=== PATIENT | male | born 1990 | race Caucasian/White ===

== ENCOUNTER 2021-11-17 12:24 | Inpatient (IN) | payer MEDICARE ==
[~2021-11-17] VITALS: Ht 165.1 cm; Wt 51.3 kg
[2021-11-17] MEDS ORDERED: MORPHINE SULFATE 4 MG/ML CPJ (NOT FOR IM USE) IV STA (12:33)
[2021-11-17] MEDS ORDERED: ONDANSETRON HCL 4MG/2ML INJ IV STA (12:33)
[2021-11-17] MEDS ORDERED: SODIUM CHLORIDE 0.9% 1,000 ML IV ONE (12:45)
[2021-11-17 13:14] LABS: CHLORIDE 101 mEq/L (98-107)
[2021-11-17] MEDS ORDERED: ASPIRIN 81MG TABLET PO ONE (13:15)
[2021-11-17 13:24] LABS: BG BASE EXCESS 0.8 mmol/L (-2.0-2.0); BG CARBOXYHEMOGLOBIN 0.6 % (0.5-1.5); BG DEOXYHEMOGLOBIN 9.5 % (0.0-5.0); BG FRACTION INSPIRED OXYGEN 21; BG HCO3 ACT 25.4 mmol/L (22.0-26.0); BG METHEMOGLOBIN 0.1 % (0.0-1.5); BG OXYGEN SATURATION 90.4 % (92.0-98.5); BG OXYHEMOGLOBIN 89.8 % (94.0-97.0); BG PCO2 40.3 mmHg (35.0-45.0); BG PH 7.417 (7.350-7.450); BG TOTAL HEMOGLOBIN 14.2 g/dL (12.0-18.0); BG VENT MODE ROOM AIR
[2021-11-17 13:24] LABS: ETHANOL BLOOD < 10 mg/dL
[2021-11-17 13:25] LABS: HEMATOCRIT. 39.1 % (42.0-52.0); HEMOGLOBIN. 13.2 g/dL (14.0-18.0); MEAN CORPUSCULAR HEMOGLOBIN 31.7 pg (28.0-32.0); MEAN CORPUSCULAR VOLUME 93.8 fL (80.0-94.0); MEAN PLATELET VOLUME 8.7 fl (7.4-10.4); PLATELET 392 x1000/uL (130-400); RED BLOOD CELL COUNT 4.16 mill/uL (4.7-6.1)
[2021-11-17] MEDS ORDERED: AZITHROMYCIN 500MG/250ML 250 ML IV ONE (13:45)
[2021-11-17] MEDS ORDERED: SODIUM CHLORIDE 0.9% 1000ML BAG (SEPSIS BOLUS) IV ONE (13:45)
[2021-11-17] MEDS ORDERED: CEFTRIAXONE 1 G PREMIX 50 ML IV ONE (13:45)
[2021-11-17 13:57] LABS: CLARITY URINE CLEAR (CLEAR); COLOR URINE DARK YELLOW (YELLOW); KETONES URINE TRACE (NEGATIVE); LEUKOCYTE ESTERASE URINE NEGATIVE (NEGATIVE); NITRITE URINE NEGATIVE (NEGATIVE); OCCULT BLOOD URINE NEGATIVE (NEGATIVE); PH URINE 8.5 (4.5-8.0); PROTEIN URINE 2+ (NEGATIVE); SPECIFIC GRAVITY URINE 1.022 (1.005-1.030)
[2021-11-17 14:18] LABS: *AMPHETAMINES SCREEN URINE NEGATIVE (NEGATIVE); *BARBITURATES SCREEN URINE NEGATIVE (NEGATIVE); *BENZODIAZEPINES SCREEN URINE NEGATIVE (NEGATIVE); *COCAINE SCREEN URINE PRESUMTIVE POSITIVE (NEGATIVE); CANNABINOID URINE SCREEN NEGATIVE (NEGATIVE); METHADONE URINE SCREEN NEGATIVE (NEGATIVE); OPIATES URINE SCREEN PRESUMTIVE POSITIVE (NEGATIVE); PHENCYCLIDINE URINE SCREEN NEGATIVE (NEGATIVE)
[2021-11-17] MEDS ORDERED: CEFTRIAXONE 1 G PREMIX 50 ML IV SCH (14:30)
[2021-11-17] MEDS ORDERED: IOHEXOL-350 100 ML BOTTLE ONE (15:24)
[2021-11-17 15:31] LABS: PLATELET ESTIMATE NORMAL
[2021-11-17] MEDS ORDERED: MIDAZOLAM HCL 2 MG/2 ML VIAL IV ONE (15:45)
[2021-11-17] MEDS ORDERED: CEFTRIAXONE 1,000 MG in DEXTROSE 5% WATER 50 ML IV SCH (17:00)
[2021-11-17 17:40] LABS: D-DIMER 3.8 mg/L FEU (<0.50); PARTIAL THROMBOPLASTIN TIME 28.7 sec (23.4-31.0); PROTHROMBIN TIME 11.2 sec (9.6-11.0)
[2021-11-17] MEDS ORDERED: AZITHROMYCIN 500MG in DEXTROSE 5% WATER 250ML IV SCH (18:00)
[2021-11-17] MEDS ORDERED: VANCOMYCIN 1GM PMX (XELLIA) 200 ML IV NR (18:00)
[2021-11-17] MEDS: KETOROLAC 30MG/ML VIAL IV PRN (20:36)
[2021-11-17] MEDS ORDERED: GUAIFENESIN 600MG ER TABLET PO SCH (21:00)
[2021-11-17] MEDS ORDERED: PIPERACILLIN/TAZOBACTAM 3.375 G in DEXTROSE 5% WATER 50 ML IV SCH (22:00)
[2021-11-17] MEDS: PIPERACILLIN/TAZOBACTAM 3.375 G in DEXTROSE 5% WATER 50 ML IV SCH (22:00)
[2021-11-17] MEDS: GUAIFENESIN 600MG ER TABLET PO SCH (23:52)
[2021-11-18] MEDS ORDERED: VANCOMYCIN 750MG PREMIX 150 ML IV SCH ×2 (06:00→12:00)
[2021-11-18] MEDS ORDERED: AZITHROMYCIN 500MG/250ML 250 ML IV SCH (09:00)
[2021-11-18] MEDS: GUAIFENESIN 600MG ER TABLET PO SCH (09:00)
[2021-11-18] MEDS ORDERED: HYDROCODONE/ACETAMINOPHEN 5/325MG TABLET ONE (11:11)
[2021-11-18] MEDS ORDERED: NALOXONE HCL 0.4MG/ML VIAL IV PRN (11:30)
[2021-11-18] MEDS: HYDROCODONE/ACETAMINOPHEN 5/325MG TABLET PO PRN ×2 (11:31→17:55)
[2021-11-18] MEDS: VANCOMYCIN 1GM PMX (XELLIA) 200 ML IV SCH (12:00)
[2021-11-18] MEDS: PIPERACILLIN/TAZOBACTAM 3.375 G in DEXTROSE 5% WATER 50 ML IV SCH ×3 (12:02→23:04)
[2021-11-18] MEDS ORDERED: MAGNESIUM 2 G PREMIX 50 ML IV SCH (13:00)
[2021-11-18] MEDS: KETOROLAC 30MG/ML VIAL IV PRN (13:12)
[2021-11-18] MEDS: MORPHINE SULFATE 2 MG/ML CPJ (NOT FOR IM USE) IV PRN ×2 (15:10→22:15)
[2021-11-18] MEDS: DEXT 5%/0.45% NACL 500ML 500 ML IV PRN (15:21)
[2021-11-18 18:58] LABS: HEMOGLOBIN. 13.1 g/dL (14.0-18.0); MEAN CORPUSCULAR VOLUME 94.8 fL (80.0-94.0); MEAN PLATELET VOLUME 7.6 fl (7.4-10.4); PLATELET 456 x1000/uL (130-400); RED BLOOD CELL COUNT 4.22 mill/uL (4.7-6.1); RED CELL DISTRIBUTION WIDTH 14.3 % (11.6-14.6)
[2021-11-18 19:27] LABS: PLATELET ESTIMATE INCREASED
[2021-11-19] VITALS (14 sets, daily range): BP systolic 92–136; BP diastolic 51–73
[2021-11-19] MEDS: GUAIFENESIN 600MG ER TABLET PO SCH ×3 (00:49→20:27)
[2021-11-19] MEDS: VANCOMYCIN 1GM PMX (XELLIA) 200 ML IV SCH ×2 (00:50→05:25)
[2021-11-19] MEDS: KETOROLAC 30MG/ML VIAL IV PRN ×2 (00:50→11:35)
[2021-11-19] MEDS: ACETAMINOPHEN 325MG TABLET PO PRN ×3 (02:36→19:40)
[2021-11-19] MEDS: MORPHINE SULFATE 2 MG/ML CPJ (NOT FOR IM USE) IV PRN ×3 (02:37→17:06)
[2021-11-19 03:57] LABS: CHLORIDE 102 mEq/L (98-107)
[2021-11-19] MEDS: PIPERACILLIN/TAZOBACTAM 3.375 G in DEXTROSE 5% WATER 50 ML IV SCH ×3 (05:26→22:03)
[2021-11-19 06:28] LABS: HEMATOCRIT. 39.1 % (42.0-52.0); HEMOGLOBIN. 13.2 g/dL (14.0-18.0); MEAN CORPUSCULAR HEMOGLOBIN 31.9 pg (28.0-32.0); MEAN CORPUSCULAR VOLUME 94.7 fL (80.0-94.0); MEAN PLATELET VOLUME 7.9 fl (7.4-10.4); PLATELET 435 x1000/uL (130-400); RED BLOOD CELL COUNT 4.13 mill/uL (4.7-6.1); RED CELL DISTRIBUTION WIDTH 14.5 % (11.6-14.6)
[2021-11-19] MEDS ORDERED: POTASSIUM CHLORIDE INJ 40 MEQ in DEXT 5% WATER 500 ML IV ONE (10:00)
[2021-11-19] MEDS ORDERED: DILTIAZEM HCL 5MG/ML 5ML VIAL IV NR (12:15)
[2021-11-19] MEDS: VANCOMYCIN 750MG PREMIX 150 ML IV SCH ×2 (13:13→21:58)
[2021-11-19] MEDS ORDERED: DILTIAZEM HCL 5MG/ML 5ML VIAL IV PRN (14:15)
[2021-11-19] MEDS: IPRATROPIUM/ALBUTEROL 0.5-3(2.5)MG/3ML NEB HHN SCH ×2 (16:33→20:15)
[2021-11-19] MEDS: HYDROCODONE/ACETAMINOPHEN 5/325MG TABLET PO PRN (19:30)
[2021-11-19] MEDS: ZOLPIDEM TARTRATE 5MG TABLET PO PRN (21:18)
[2021-11-20] VITALS (10 sets, daily range): BP systolic 100–155; BP diastolic 50–78
[2021-11-20] MEDS: MORPHINE SULFATE 2 MG/ML CPJ (NOT FOR IM USE) IV PRN ×4 (00:28→20:43)
[2021-11-20] MEDS: ACETAMINOPHEN 325MG TABLET PO PRN ×3 (01:59→17:45)
[2021-11-20] MEDS: KETOROLAC 30MG/ML VIAL IV PRN (02:14)
[2021-11-20 03:12] LABS: HEMATOCRIT. 39.4 % (42.0-52.0); HEMOGLOBIN. 13.2 g/dL (14.0-18.0); MEAN CORPUSCULAR VOLUME 92.8 fL (80.0-94.0); MEAN PLATELET VOLUME 7.8 fl (7.4-10.4); PLATELET 569 x1000/uL (130-400); RED BLOOD CELL COUNT 4.25 mill/uL (4.7-6.1); RED CELL DISTRIBUTION WIDTH 14.2 % (11.6-14.6)
[2021-11-20 03:25] LABS: CHLORIDE 101 mEq/L (98-107)
[2021-11-20] MEDS: IPRATROPIUM/ALBUTEROL 0.5-3(2.5)MG/3ML NEB HHN SCH ×3 (04:45→16:07)
[2021-11-20 04:57] LABS: PLATELET ESTIMATE INCREASED
[2021-11-20] MEDS: PIPERACILLIN/TAZOBACTAM 3.375 G in DEXTROSE 5% WATER 50 ML IV SCH ×3 (05:15→20:44)
[2021-11-20] MEDS: VANCOMYCIN 750MG PREMIX 150 ML IV SCH (05:15)
[2021-11-20] MEDS: IPRATROPIUM/ALBUTEROL 0.5-3(2.5)MG/3ML NEB HHN PRN (08:25)
[2021-11-20] MEDS: GUAIFENESIN 600MG ER TABLET PO SCH ×2 (08:34→20:44)
[2021-11-20] MEDS: DILTIAZEM HCL 30MG TABLET PO SCH ×3 (12:20→23:38)
[2021-11-20] MEDS: HYDROCODONE/ACETAMINOPHEN 5/325MG TABLET PO PRN (13:35)
[2021-11-20 14:03] LABS: PLATELET ESTIMATE SLIGHTLY INCREASED
[2021-11-20] MEDS: VANCOMYCIN 1GM PMX (XELLIA) 200 ML IV SCH ×2 (14:14→20:44)
[2021-11-20] MEDS: LORAZEPAM 1MG TABLET PO PRN (15:41)
[2021-11-20] MEDS: IPRATROPIUM BROMIDE (0.02%) 0.5MG/2.5ML NEB HHN SCH (20:15)
[2021-11-20] MEDS: ONDANSETRON HCL 4MG/2ML INJ IV PRN (20:44)
[2021-11-20] MEDS: ZOLPIDEM TARTRATE 5MG TABLET PO PRN (21:34)
[2021-11-21] VITALS (13 sets, daily range): BP systolic 109–136; BP diastolic 60–76
[2021-11-21] MEDS: HYDROCODONE/ACETAMINOPHEN 5/325MG TABLET PO PRN (01:18)
[2021-11-21] MEDS: LORAZEPAM 1MG TABLET PO PRN ×2 (01:18→16:55)
[2021-11-21] MEDS: IPRATROPIUM BROMIDE (0.02%) 0.5MG/2.5ML NEB HHN SCH ×4 (02:18→19:59)
[2021-11-21] MEDS: PIPERACILLIN/TAZOBACTAM 3.375 G in DEXTROSE 5% WATER 50 ML IV SCH ×3 (04:57→20:54)
[2021-11-21] MEDS: VANCOMYCIN 1GM PMX (XELLIA) 200 ML IV SCH ×3 (04:58→20:55)
[2021-11-21] MEDS: DILTIAZEM HCL 30MG TABLET PO SCH ×4 (05:03→23:46)
[2021-11-21] MEDS: MORPHINE SULFATE 2 MG/ML CPJ (NOT FOR IM USE) IV PRN (06:25)
[2021-11-21 06:39] LABS: CHLORIDE 100 mEq/L (98-107)
[2021-11-21 06:45] LABS: HEMATOCRIT. 39.5 % (42.0-52.0); HEMOGLOBIN. 13.2 g/dL (14.0-18.0); MEAN CORPUSCULAR HEMOGLOBIN 31.1 pg (28.0-32.0); MEAN CORPUSCULAR VOLUME 93.4 fL (80.0-94.0); MEAN PLATELET VOLUME 8.3 fl (7.4-10.4); PLATELET 638 x1000/uL (130-400); RED BLOOD CELL COUNT 4.22 mill/uL (4.7-6.1); RED CELL DISTRIBUTION WIDTH 14.4 % (11.6-14.6)
[2021-11-21] MEDS ORDERED: ACETAMINOPHEN 325MG TABLET PO PRN (08:45)
[2021-11-21] MEDS: ACETAMINOPHEN 325MG TABLET PO PRN ×3 (08:49→22:11)
[2021-11-21] MEDS: GUAIFENESIN 600MG ER TABLET PO SCH ×2 (08:49→20:55)
[2021-11-21 15:08] LABS: PLATELET ESTIMATE INCREASED
[2021-11-21] MEDS ORDERED: DIGOXIN 500MCG/2ML AMP IV NR (18:15)
[2021-11-21] MEDS: ZOLPIDEM TARTRATE 5MG TABLET PO PRN (22:11)
[2021-11-22] VITALS (22 sets, daily range): BP systolic 90–147; BP diastolic 52–93
[2021-11-22] MEDS: DEXT 5%/0.45% NACL 500ML 500 ML IV PRN (00:59)
[2021-11-22] MEDS: IPRATROPIUM BROMIDE (0.02%) 0.5MG/2.5ML NEB HHN SCH ×4 (01:12→18:00)
[2021-11-22] MEDS: LORAZEPAM 1MG TABLET PO PRN (03:18)
[2021-11-22] MEDS: ONDANSETRON HCL 4MG/2ML INJ IV PRN (03:18)
[2021-11-22] MEDS: PIPERACILLIN/TAZOBACTAM 3.375 G in DEXTROSE 5% WATER 50 ML IV SCH ×3 (05:42→23:58)
[2021-11-22] MEDS: VANCOMYCIN 1GM PMX (XELLIA) 200 ML IV SCH ×3 (05:42→22:54)
[2021-11-22] MEDS: DILTIAZEM HCL 30MG TABLET PO SCH ×3 (05:43→17:36)
[2021-11-22] MEDS: HYDROCODONE/ACETAMINOPHEN 5/325MG TABLET PO PRN (09:41)
[2021-11-22] MEDS: GUAIFENESIN 600MG ER TABLET PO SCH ×2 (09:42→21:00)
[2021-11-22 12:34] LABS: INR 1.1; PROTHROMBIN TIME 11.5 sec (9.6-11.0)
[2021-11-22 12:35] LABS: CHLORIDE 100 mEq/L (98-107)
[2021-11-22 12:45] LABS: HEMOGLOBIN. 12.4 g/dL (14.0-18.0); MEAN CORPUSCULAR HEMOGLOBIN 31.4 pg (28.0-32.0); MEAN CORPUSCULAR VOLUME 94.1 fL (80.0-94.0); MEAN PLATELET VOLUME 8.2 fl (7.4-10.4); PLATELET 639 x1000/uL (130-400); RED BLOOD CELL COUNT 3.93 mill/uL (4.7-6.1); RED CELL DISTRIBUTION WIDTH 14.4 % (11.6-14.6)
[2021-11-22 13:51] LABS: PLATELET ESTIMATE MARKEDLY INCREASED
[2021-11-22] MEDS: ACETAMINOPHEN 325MG TABLET PO PRN (15:37)
[2021-11-22] MEDS ORDERED: BUPIVACAINE HCL/PF 0.5% (5MG/ML) 10ML ONE (16:18)
[2021-11-22] MEDS ORDERED: SKIN ADHESIVE 0.7 GM EA TOP ONE (16:18)
[2021-11-22] MEDS ORDERED: POLYMYXIN B SULFATE 500000 UNITS/VIAL ONE (16:18)
[2021-11-22] MEDS ORDERED: POTASSIUM CHLORIDE INJ 40 MEQ in DEXT 5% WATER 500 ML IV NR (16:30)
[2021-11-22] MEDS ORDERED: FENTANYL CITRATE/PF 50MCG/ML 2ML VIAL ONE (19:19)
[2021-11-22] MEDS ORDERED: PROPOFOL 200MG/20ML VIAL IV ONE (19:19)
[2021-11-22] MEDS ORDERED: MIDAZOLAM HCL 2 MG/2 ML VIAL ONE (19:20)
[2021-11-22] MEDS ORDERED: ROCURONIUM BROMIDE 10MG/ML VIAL 5ML IV ONE (19:24)
[2021-11-22] MEDS ORDERED: NEOSTIGMINE METHYLSULFATE 1MG/ML 10 ML VIAL ONE (20:35)
[2021-11-22] MEDS ORDERED: ONDANSETRON HCL 4MG/2ML INJ ONE (20:35)
[2021-11-22] MEDS ORDERED: DEXAMETHASONE 4MG/ML 1ML VIAL ONE (20:35)
[2021-11-22] MEDS ORDERED: GLYCOPYRROLATE 0.2 MG/ML 2ML VIAL ONE (20:35)
[2021-11-22] MEDS ORDERED: METOCLOPRAMIDE HCL 10MG/2ML VIAL ONE (20:35)
[2021-11-22] MEDS ORDERED: HYDROMORPHONE HCL/PF 2MG/ML CPJ ONE (20:38)
[2021-11-22] MEDS ORDERED: ONDANSETRON HCL 4MG/2ML INJ IV PRN (21:30)
[2021-11-22] MEDS ORDERED: HYDROMORPHONE HCL/PF 2MG/ML CPJ IV PRN (21:30)
[2021-11-22] MEDS ORDERED: MEPERIDINE HCL/PF 25MG/ML CPJ IV PRN (21:30)
[2021-11-22] MEDS ORDERED: SODIUM CHLORIDE 0.9% 1,000 ML IV ONE (22:00)
[2021-11-22] MEDS: HYDROMORPHONE HCL/PF 2MG/ML CPJ IV PRN (22:39)
[2021-11-22] MEDS: LACTATED RINGERS 1,000 ML IV SCH (23:38)
[2021-11-23] VITALS (69 sets, daily range): BP systolic 90–134; BP diastolic 54–92
[2021-11-23] MEDS: HYDROMORPHONE HCL/PF 2MG/ML CPJ IV PRN (02:16)
[2021-11-23 05:57] LABS: CHLORIDE 102 mEq/L (98-107)
[2021-11-23] MEDS: DILTIAZEM HCL 30MG TABLET PO SCH ×4 (06:00→16:51)
[2021-11-23 06:03] LABS: HEMATOCRIT. 36.1 % (42.0-52.0); HEMOGLOBIN. 12.1 g/dL (14.0-18.0); MEAN CORPUSCULAR HEMOGLOBIN 31.3 pg (28.0-32.0); MEAN CORPUSCULAR VOLUME 93.3 fL (80.0-94.0); MEAN PLATELET VOLUME 8.3 fl (7.4-10.4); PLATELET 683 x1000/uL (130-400); RED BLOOD CELL COUNT 3.87 mill/uL (4.7-6.1); RED CELL DISTRIBUTION WIDTH 14.6 % (11.6-14.6)
[2021-11-23] MEDS: PIPERACILLIN/TAZOBACTAM 3.375 G in DEXTROSE 5% WATER 50 ML IV SCH ×3 (06:27→21:47)
[2021-11-23] MEDS: HYDROCODONE/ACETAMINOPHEN 5/325MG TABLET PO PRN (06:28)
[2021-11-23 08:41] LABS: BG BASE EXCESS -0.1 mmol/L (-2.0-2.0); BG CARBOXYHEMOGLOBIN 0.3 % (0.5-1.5); BG HCO3 ACT 23.6 mmol/L (22.0-26.0); BG METHEMOGLOBIN 0.2 % (0.0-1.5); BG OXYHEMOGLOBIN 98.5 % (94.0-97.0); BG PCO2 35.1 mmHg (35.0-45.0); BG PH 7.445 (7.350-7.450); BG PO2 152.9 mmHg (75.0-100.0); BG SAMPLE SITE RIGHT BRACHIAL; BG TOTAL HEMOGLOBIN 12.7 g/dL (12.0-18.0); BG VENT MODE MASK - NRB
[2021-11-23] MEDS: MORPHINE SULFATE 2 MG/ML CPJ (NOT FOR IM USE) IV PRN ×2 (08:57→14:05)
[2021-11-23] MEDS: GUAIFENESIN 600MG ER TABLET PO SCH ×2 (08:57→21:47)
[2021-11-23] MEDS: IPRATROPIUM BROMIDE (0.02%) 0.5MG/2.5ML NEB HHN SCH ×2 (08:58→14:55)
[2021-11-23] MEDS: LACTATED RINGERS 1,000 ML IV SCH (11:20)
[2021-11-23] MEDS: HYDROCODONE/ACETAMINOPHEN 10/325MG TABLET PO PRN ×3 (11:55→21:56)
[2021-11-23] MEDS: VANCOMYCIN 1GM PMX (XELLIA) 200 ML IV SCH ×2 (11:55→20:06)
[2021-11-23] MEDS ORDERED: NALOXONE HCL 0.4MG/ML VIAL IV PRN (12:00)
[2021-11-23] MEDS ORDERED: MORPHINE SULFATE 2 MG/ML CPJ (NOT FOR IM USE) IV NR (16:45)
[2021-11-23] MEDS: ZOLPIDEM TARTRATE 5MG TABLET PO PRN (22:51)
[2021-11-23 22:54] LABS: PLATELET ESTIMATE INCREASED
[2021-11-24] VITALS (68 sets, daily range): BP systolic 101–155; BP diastolic 53–78
[2021-11-24] MEDS: DILTIAZEM HCL 30MG TABLET PO SCH ×4 (00:02→17:25)
[2021-11-24] MEDS: IPRATROPIUM BROMIDE (0.02%) 0.5MG/2.5ML NEB HHN SCH ×3 (00:50→20:02)
[2021-11-24] MEDS: HYDROCODONE/ACETAMINOPHEN 10/325MG TABLET PO PRN ×4 (01:42→19:53)
[2021-11-24] MEDS ORDERED: MORPHINE SULFATE 2 MG/ML CPJ (NOT FOR IM USE) IV NR (03:30)
[2021-11-24] MEDS: VANCOMYCIN 1GM PMX (XELLIA) 200 ML IV SCH ×3 (03:46→20:02)
[2021-11-24] MEDS: PIPERACILLIN/TAZOBACTAM 3.375 G in DEXTROSE 5% WATER 50 ML IV SCH ×3 (05:57→21:43)
[2021-11-24 06:50] LABS: HEMATOCRIT. 32.1 % (42.0-52.0); HEMOGLOBIN. 10.8 g/dL (14.0-18.0); MEAN CORPUSCULAR HEMOGLOBIN 31.4 pg (28.0-32.0); MEAN CORPUSCULAR VOLUME 93.2 fL (80.0-94.0); MEAN PLATELET VOLUME 8.5 fl (7.4-10.4); PLATELET 746 x1000/uL (130-400); RED BLOOD CELL COUNT 3.44 mill/uL (4.7-6.1); RED CELL DISTRIBUTION WIDTH 14.5 % (11.6-14.6)
[2021-11-24 06:58] LABS: CHLORIDE 100 mEq/L (98-107)
[2021-11-24 07:31] LABS: PLATELET ESTIMATE INCREASED
[2021-11-24] MEDS: GUAIFENESIN 600MG ER TABLET PO SCH ×2 (10:53→20:02)
[2021-11-24] MEDS: DOCUSATE SODIUM 250MG CAPSULE PO SCH (11:55)
[2021-11-24] MEDS: MORPHINE SULFATE 2 MG/ML CPJ (NOT FOR IM USE) IV PRN ×4 (11:57→21:45)
[2021-11-24] MEDS: ACETAMINOPHEN 325MG TABLET PO PRN (16:34)
[2021-11-24 16:44] LABS: BG BASE EXCESS 0.1 mmol/L (-2.0-2.0); BG CARBOXYHEMOGLOBIN 0.9 % (0.5-1.5); BG DEOXYHEMOGLOBIN 3.5 % (0.0-5.0); BG FRACTION INSPIRED OXYGEN 38; BG HCO3 ACT 23.1 mmol/L (22.0-26.0); BG METHEMOGLOBIN 0.3 % (0.0-1.5); BG OXYGEN SATURATION 96.5 % (92.0-98.5); BG OXYHEMOGLOBIN 95.3 % (94.0-97.0); BG PCO2 32.5 mmHg (35.0-45.0); BG SAMPLE SITE RIGHT BRACHIAL; BG TOTAL HEMOGLOBIN 12.5 g/dL (12.0-18.0); BG VENT MODE NASAL CANNULA
[2021-11-24] MEDS ORDERED: LACTULOSE 20G/30ML UDC PO PRN (17:06)
[2021-11-24] MEDS: LORAZEPAM 1MG TABLET PO PRN (20:02)
[2021-11-24] MEDS: ZOLPIDEM TARTRATE 5MG TABLET PO PRN (22:43)
[2021-11-25] VITALS (20 sets, daily range): BP systolic 95–148; BP diastolic 47–82
[2021-11-25] MEDS: DILTIAZEM HCL 30MG TABLET PO SCH ×5 (00:01→23:43)
[2021-11-25] MEDS: HYDROCODONE/ACETAMINOPHEN 10/325MG TABLET PO PRN ×3 (00:02→15:49)
[2021-11-25] MEDS: VANCOMYCIN 1GM PMX (XELLIA) 200 ML IV SCH ×3 (03:04→20:45)
[2021-11-25] MEDS: PIPERACILLIN/TAZOBACTAM 3.375 G in DEXTROSE 5% WATER 50 ML IV SCH ×3 (05:09→20:48)
[2021-11-25] MEDS: MORPHINE SULFATE 2 MG/ML CPJ (NOT FOR IM USE) IV PRN ×4 (05:26→23:42)
[2021-11-25] MEDS: LORAZEPAM 1MG TABLET PO PRN (05:56)
[2021-11-25] MEDS: IPRATROPIUM BROMIDE (0.02%) 0.5MG/2.5ML NEB HHN SCH ×3 (07:57→20:34)
[2021-11-25 08:16] LABS: BG BASE EXCESS 2.9 mmol/L (-2.0-2.0); BG CARBOXYHEMOGLOBIN 0.5 % (0.5-1.5); BG DEOXYHEMOGLOBIN 6.4 % (0.0-5.0); BG FRACTION INSPIRED OXYGEN 21; BG HCO3 ACT 25.2 mmol/L (22.0-26.0); BG METHEMOGLOBIN 0.3 % (0.0-1.5); BG OXYGEN SATURATION 93.5 % (92.0-98.5); BG OXYHEMOGLOBIN 92.8 % (94.0-97.0); BG PCO2 31.6 mmHg (35.0-45.0); BG PO2 62.9 mmHg (75.0-100.0); BG SAMPLE SITE LEFT BRACHIAL; BG TOTAL HEMOGLOBIN 12.2 g/dL (12.0-18.0); BG VENT MODE ROOM AIR
[2021-11-25] MEDS: GUAIFENESIN 600MG ER TABLET PO SCH ×2 (08:23→20:48)
[2021-11-25] MEDS: DOCUSATE SODIUM 250MG CAPSULE PO SCH (08:25)
[2021-11-25 10:38] LABS: HEMATOCRIT. 33.4 % (42.0-52.0); HEMOGLOBIN. 11.2 g/dL (14.0-18.0); MEAN CORPUSCULAR VOLUME 92.6 fL (80.0-94.0); MEAN PLATELET VOLUME 7.9 fl (7.4-10.4); PLATELET 867 x1000/uL (130-400); RED BLOOD CELL COUNT 3.61 mill/uL (4.7-6.1); RED CELL DISTRIBUTION WIDTH 14.2 % (11.6-14.6)
[2021-11-25 10:44] LABS: CHLORIDE 96 mEq/L (98-107)
[2021-11-25] MEDS ORDERED: POTASSIUM CHLORIDE 20MEQ TABLET SR PO NR ×2 (12:15→13:30)
[2021-11-25 13:08] LABS: PLATELET ESTIMATE MARKEDLY INCREASED
[2021-11-25] MEDS: ACETAMINOPHEN 325MG TABLET PO PRN ×2 (17:33→23:43)
[2021-11-25] MEDS: ZOLPIDEM TARTRATE 5MG TABLET PO PRN (23:42)
[2021-11-26] VITALS (11 sets, daily range): BP systolic 107–127; BP diastolic 38–75
[2021-11-26] MEDS: VANCOMYCIN 1GM PMX (XELLIA) 200 ML IV SCH ×3 (03:00→21:12)
[2021-11-26] MEDS: HYDROCODONE/ACETAMINOPHEN 10/325MG TABLET PO PRN ×3 (03:26→21:11)
[2021-11-26] MEDS: DILTIAZEM HCL 30MG TABLET PO SCH ×3 (05:12→18:05)
[2021-11-26] MEDS: PIPERACILLIN/TAZOBACTAM 3.375 G in DEXTROSE 5% WATER 50 ML IV SCH ×3 (05:13→22:52)
[2021-11-26] MEDS: MORPHINE SULFATE 2 MG/ML CPJ (NOT FOR IM USE) IV PRN ×3 (06:07→14:31)
[2021-11-26 07:38] LABS: HEMATOCRIT 33.1 % (42.0-52.0); HEMOGLOBIN 10.9 g/dL (14.0-18.0); MEAN CORPUSCULAR HEMOGLOBIN 31.2 pg (28.0-32.0); PLATELET 884 x1000/uL (130-400); RED BLOOD CELL COUNT 3.49 mill/uL (4.7-6.1); RED CELL DISTRIBUTION WIDTH 14.2 % (11.6-14.6)
[2021-11-26 08:03] LABS: CHLORIDE 100 mEq/L (98-107)
[2021-11-26] MEDS: IPRATROPIUM BROMIDE (0.02%) 0.5MG/2.5ML NEB HHN SCH ×4 (08:19→18:00)
[2021-11-26] MEDS: GUAIFENESIN 600MG ER TABLET PO SCH ×2 (08:37→21:08)
[2021-11-26] MEDS: DOCUSATE SODIUM 250MG CAPSULE PO SCH (08:37)
[2021-11-26] MEDS: ZOLPIDEM TARTRATE 5MG TABLET PO PRN (23:01)
[2021-11-27] VITALS (12 sets, daily range): BP systolic 100–126; BP diastolic 40–77
[2021-11-27] MEDS: DILTIAZEM HCL 30MG TABLET PO SCH ×5 (00:26→23:02)
[2021-11-27] MEDS: HYDROCODONE/ACETAMINOPHEN 10/325MG TABLET PO PRN ×4 (04:22→20:50)
[2021-11-27] MEDS: PIPERACILLIN/TAZOBACTAM 3.375 G in DEXTROSE 5% WATER 50 ML IV SCH ×3 (05:24→21:00)
[2021-11-27 06:22] LABS: HEMATOCRIT. 31.7 % (42.0-52.0); HEMOGLOBIN. 10.4 g/dL (14.0-18.0); MEAN CORPUSCULAR HEMOGLOBIN 31.4 pg (28.0-32.0); MEAN CORPUSCULAR VOLUME 95.6 fL (80.0-94.0); MEAN PLATELET VOLUME 7.8 fl (7.4-10.4); PLATELET 969 x1000/uL (130-400); RED BLOOD CELL COUNT 3.32 mill/uL (4.7-6.1); RED CELL DISTRIBUTION WIDTH 14.4 % (11.6-14.6)
[2021-11-27 06:32] LABS: CHLORIDE 99 mEq/L (98-107)
[2021-11-27] MEDS: GUAIFENESIN 600MG ER TABLET PO SCH ×2 (08:27→20:50)
[2021-11-27] MEDS: DOCUSATE SODIUM 250MG CAPSULE PO SCH (08:27)
[2021-11-27] MEDS: IPRATROPIUM BROMIDE (0.02%) 0.5MG/2.5ML NEB HHN SCH ×4 (08:40→20:34)
[2021-11-27 09:48] LABS: PLATELET ESTIMATE MARKEDLY INCREASED
[2021-11-27] MEDS: VANCOMYCIN 1G PREMIX 200 ML IV SCH ×2 (10:34→18:01)
[2021-11-27] MEDS: MORPHINE SULFATE 2 MG/ML CPJ (NOT FOR IM USE) IV PRN ×3 (11:13→23:01)
[2021-11-28] VITALS (19 sets, daily range): BP systolic 87–126; BP diastolic 27–82
[2021-11-28] MEDS: VANCOMYCIN 1G PREMIX 200 ML IV SCH ×3 (01:22→17:43)
[2021-11-28] MEDS: IPRATROPIUM BROMIDE (0.02%) 0.5MG/2.5ML NEB HHN SCH ×4 (02:30→20:27)
[2021-11-28] MEDS: PIPERACILLIN/TAZOBACTAM 3.375 G in DEXTROSE 5% WATER 50 ML IV SCH ×3 (05:04→21:32)
[2021-11-28] MEDS: DILTIAZEM HCL 30MG TABLET PO SCH ×4 (05:54→23:31)
[2021-11-28] MEDS: HYDROCODONE/ACETAMINOPHEN 10/325MG TABLET PO PRN ×4 (06:07→21:33)
[2021-11-28 06:25] LABS: CHLORIDE 101 mEq/L (98-107)
[2021-11-28 06:58] LABS: HEMOGLOBIN. 10.7 g/dL (14.0-18.0); MEAN CORPUSCULAR HEMOGLOBIN 31.8 pg (28.0-32.0); MEAN PLATELET VOLUME 7.7 fl (7.4-10.4); RED BLOOD CELL COUNT 3.37 mill/uL (4.7-6.1); RED CELL DISTRIBUTION WIDTH 14.3 % (11.6-14.6)
[2021-11-28 08:03] LABS: PLATELET ESTIMATE MARKEDLY INCREASED
[2021-11-28 08:04] LABS: PLATELET 1028 x1000/uL (130-400)
[2021-11-28] MEDS: ENOXAPARIN 40MG/0.4ML SYR SUBCUT SCH (09:02)
[2021-11-28] MEDS: DOCUSATE SODIUM 250MG CAPSULE PO SCH (09:02)
[2021-11-28] MEDS: GUAIFENESIN 600MG ER TABLET PO SCH ×2 (09:02→21:32)
[2021-11-28] MEDS: ACETAMINOPHEN 325MG TABLET PO PRN (16:14)
[2021-11-28] MEDS ORDERED: MORPHINE SULFATE 2 MG/ML CPJ (NOT FOR IM USE) IV NR (23:06)
[2021-11-29] VITALS (12 sets, daily range): BP systolic 94–125; BP diastolic 44–76
[2021-11-29] MEDS: VANCOMYCIN 1G PREMIX 200 ML IV SCH ×3 (01:33→18:27)
[2021-11-29] MEDS: IPRATROPIUM BROMIDE (0.02%) 0.5MG/2.5ML NEB HHN SCH ×3 (02:16→20:50)
[2021-11-29] MEDS: DILTIAZEM HCL 30MG TABLET PO SCH ×4 (05:35→23:39)
[2021-11-29] MEDS: PIPERACILLIN/TAZOBACTAM 3.375 G in DEXTROSE 5% WATER 50 ML IV SCH ×3 (05:35→21:21)
[2021-11-29] MEDS: HYDROCODONE/ACETAMINOPHEN 10/325MG TABLET PO PRN ×4 (05:36→23:38)
[2021-11-29 06:17] LABS: CHLORIDE 100 mEq/L (98-107)
[2021-11-29 06:20] LABS: HEMATOCRIT. 30.1 % (42.0-52.0); HEMOGLOBIN. 9.9 g/dL (14.0-18.0); MEAN CORPUSCULAR HEMOGLOBIN 31.6 pg (28.0-32.0); MEAN CORPUSCULAR VOLUME 96.4 fL (80.0-94.0); MEAN PLATELET VOLUME 7.6 fl (7.4-10.4); RED BLOOD CELL COUNT 3.12 mill/uL (4.7-6.1); RED CELL DISTRIBUTION WIDTH 14.5 % (11.6-14.6)
[2021-11-29 07:28] LABS: PLATELET 1048 x1000/uL (130-400)
[2021-11-29] MEDS: GUAIFENESIN 600MG ER TABLET PO SCH ×2 (09:54→21:20)
[2021-11-29] MEDS: DOCUSATE SODIUM 250MG CAPSULE PO SCH (09:54)
[2021-11-29] MEDS: ENOXAPARIN 40MG/0.4ML SYR SUBCUT SCH (09:55)
[2021-11-29 13:04] LABS: PLATELET ESTIMATE MARKEDLY INCREASED
[2021-11-29] MEDS: IPRATROPIUM/ALBUTEROL 0.5-3(2.5)MG/3ML NEB HHN PRN (14:12)
[2021-11-29] MEDS: ACETAMINOPHEN 325MG TABLET PO PRN (18:28)
[2021-11-30] VITALS (13 sets, daily range): BP systolic 100–141; BP diastolic 54–77
[2021-11-30] MEDS: IPRATROPIUM BROMIDE (0.02%) 0.5MG/2.5ML NEB HHN SCH ×4 (02:00→20:37)
[2021-11-30] MEDS: VANCOMYCIN 1G PREMIX 200 ML IV SCH (02:13)
[2021-11-30] MEDS: DILTIAZEM HCL 30MG TABLET PO SCH ×3 (05:29→17:42)
[2021-11-30] MEDS: PIPERACILLIN/TAZOBACTAM 3.375 G in DEXTROSE 5% WATER 50 ML IV SCH ×3 (05:30→21:30)
[2021-11-30] MEDS: HYDROCODONE/ACETAMINOPHEN 10/325MG TABLET PO PRN ×2 (05:30→09:33)
[2021-11-30 06:24] LABS: BASOPHILS % 0.4 % (0.0-2.0); EOSINOPHILS % 0.6 % (0.0-5.0); HEMATOCRIT. 33.5 % (42.0-52.0); HEMOGLOBIN. 11.1 g/dL (14.0-18.0); LYMPHOCYTES % 8.8 % (20.0-50.0); MEAN CORPUSCULAR HEMOGLOBIN 31.4 pg (28.0-32.0); MEAN CORPUSCULAR VOLUME 94.5 fL (80.0-94.0); NEUTROPHILS % 84.2 % (40.0-76.0); RED BLOOD CELL COUNT 3.54 mill/uL (4.7-6.1); RED CELL DISTRIBUTION WIDTH 14.6 % (11.6-14.6)
[2021-11-30 06:30] LABS: MEAN PLATELET VOLUME 7.4 fl (7.4-10.4); PLATELET 1142 x1000/uL (130-400)
[2021-11-30 08:25] LABS: PLATELET ESTIMATE MARKEDLY INCREASED
[2021-11-30] MEDS: GUAIFENESIN 600MG ER TABLET PO SCH ×2 (09:32→21:29)
[2021-11-30] MEDS: DOCUSATE SODIUM 250MG CAPSULE PO SCH (09:32)
[2021-11-30] MEDS: ENOXAPARIN 40MG/0.4ML SYR SUBCUT SCH (09:33)
[2021-11-30] MEDS: SODIUM CHLORIDE 0.9% 1,000 ML IV SCH (11:46)
[2021-11-30] MEDS ORDERED: HYDROMORPHONE HCL/PF 2MG/ML CPJ IV SCH (15:45)
[2021-11-30] MEDS ORDERED: VANCOMYCIN 1GM PMX (XELLIA) 200 ML IV SCH (18:00)
[2021-11-30] MEDS: ACETAMINOPHEN 325MG TABLET PO PRN (21:29)
[2021-12-01] VITALS (12 sets, daily range): BP systolic 103–123; BP diastolic 53–77
[2021-12-01] MEDS: IPRATROPIUM BROMIDE (0.02%) 0.5MG/2.5ML NEB HHN SCH ×4 (02:23→20:22)
[2021-12-01] MEDS: HYDROCODONE/ACETAMINOPHEN 10/325MG TABLET PO PRN ×2 (05:30→18:43)
[2021-12-01] MEDS: DILTIAZEM HCL 30MG TABLET PO SCH ×5 (05:31→23:06)
[2021-12-01] MEDS: PIPERACILLIN/TAZOBACTAM 3.375 G in DEXTROSE 5% WATER 50 ML IV SCH (05:31)
[2021-12-01 06:42] LABS: BASOPHILS % 0.5 % (0.0-2.0); EOSINOPHILS % 0.6 % (0.0-5.0); HEMATOCRIT. 31.4 % (42.0-52.0); HEMOGLOBIN. 10.4 g/dL (14.0-18.0); LYMPHOCYTES % 8.6 % (20.0-50.0); MEAN CORPUSCULAR HEMOGLOBIN 31.6 pg (28.0-32.0); MEAN CORPUSCULAR VOLUME 95.8 fL (80.0-94.0); MEAN PLATELET VOLUME 7.5 fl (7.4-10.4); MONOCYTES % 4.8 % (2.0-8.0); NEUTROPHILS % 85.5 % (40.0-76.0); RED BLOOD CELL COUNT 3.28 mill/uL (4.7-6.1); RED CELL DISTRIBUTION WIDTH 14.7 % (11.6-14.6)
[2021-12-01 07:00] LABS: PLATELET 1088 x1000/uL (130-400)
[2021-12-01] MEDS: ENOXAPARIN 40MG/0.4ML SYR SUBCUT SCH (09:00)
[2021-12-01] MEDS: DOCUSATE SODIUM 250MG CAPSULE PO SCH (09:01)
[2021-12-01] MEDS: GUAIFENESIN 600MG ER TABLET PO SCH ×2 (09:02→21:08)
[2021-12-01] MEDS ORDERED: CEFTRIAXONE 2 G PREMIX 50 ML IV SCH (10:30)
[2021-12-01] MEDS ORDERED: VANCOMYCIN 750MG PREMIX 150 ML IV NR (14:00)
[2021-12-01] MEDS: CEFTRIAXONE 2 G in DEXTROSE 5% WATER 50 ML IV SCH (14:22)
[2021-12-01] MEDS: ACETAMINOPHEN 325MG TABLET PO PRN (16:25)
[2021-12-01] MEDS: SODIUM CHLORIDE 0.9% 1,000 ML IV SCH (21:13)
[2021-12-02] VITALS (9 sets, daily range): BP systolic 103–119; BP diastolic 58–74
[2021-12-02] MEDS: IPRATROPIUM BROMIDE (0.02%) 0.5MG/2.5ML NEB HHN SCH ×3 (01:15→14:01)
[2021-12-02] MEDS: HYDROCODONE/ACETAMINOPHEN 10/325MG TABLET PO PRN (04:37)
[2021-12-02] MEDS: DILTIAZEM HCL 30MG TABLET PO SCH ×2 (05:42→12:00)
[2021-12-02 06:24] LABS: BASOPHILS % 0.5 % (0.0-2.0); EOSINOPHILS % 0.6 % (0.0-5.0); HEMATOCRIT. 27.6 % (42.0-52.0); HEMOGLOBIN. 9.3 g/dL (14.0-18.0); LYMPHOCYTES % 10.1 % (20.0-50.0); MEAN CORPUSCULAR HEMOGLOBIN 31.7 pg (28.0-32.0); MEAN CORPUSCULAR VOLUME 93.9 fL (80.0-94.0); MEAN PLATELET VOLUME 7.4 fl (7.4-10.4); MONOCYTES % 5.9 % (2.0-8.0); NEUTROPHILS % 82.9 % (40.0-76.0); PLATELET 980 x1000/uL (130-400); RED BLOOD CELL COUNT 2.93 mill/uL (4.7-6.1); RED CELL DISTRIBUTION WIDTH 14.1 % (11.6-14.6)
[2021-12-02] MEDS: DOCUSATE SODIUM 250MG CAPSULE PO SCH (08:33)
[2021-12-02] MEDS: GUAIFENESIN 600MG ER TABLET PO SCH (08:33)
[2021-12-02] MEDS: ENOXAPARIN 40MG/0.4ML SYR SUBCUT SCH (08:33)
[2021-12-02] MEDS ORDERED: ALBU18HF2 IH (11:50)
[2021-12-02] MEDS ORDERED: AMOX1TAB16 MT (13:23)
[2021-12-02] MEDS: CEFTRIAXONE 2 G in DEXTROSE 5% WATER 50 ML IV SCH (13:24)
[2021-12-02] MEDS: ACETAMINOPHEN 325MG TABLET PO PRN (14:38)
== END 2021-12-02 17:25 | disposition home health service (06) | DRG 710 ==
LOC: ER 12:24 → MICUSO 14:09 → EDBEDREQTM 14:46 → EDBEDREQ 14:46 → ENRESERV 11-18 22:38 → 5EST 11-19 00:21 → CVICU 11-22 21:50 → 5EST 11-25 13:06
PROVIDERS: ADMIT Internal Medicine; ATTEND Internal Medicine
PROC: 0W993ZZ Drainage of Right Pleural Cavity, Percutaneous Approach (ICD-10-PCS; 2021-11-19)
PROC: 0BN Respiratory System, Release (ICD-10-PCS; principal; 2021-11-22)
PROC: 0W9B3ZZ Drainage of Left Pleural Cavity, Percutaneous Approach (ICD-10-PCS; 2021-11-22)
PROC: 0W9B40Z Drainage of Left Pleural Cavity with Drainage Device, Percutaneous Endoscopic Approach (ICD-10-PCS; 2021-11-22)
PROC: 03HY32Z Insertion of Monitoring Device into Upper Artery, Percutaneous Approach (ICD-10-PCS; 2021-11-22)
DX: A40.9 Streptococcal sepsis, unspecified (principal); J96.01 Acute respiratory failure with hypoxia; J86.9 Pyothorax without fistula; E43 Unspecified severe protein-calorie malnutrition; K85.90 Acute pancreatitis without necrosis or infection, unspecified; J68.0 Bronchitis and pneumonitis due to chemicals, gases, fumes and vapors; J91.8 Pleural effusion in other conditions classified elsewhere; E83.42 Hypomagnesemia; E87.6 Hypokalemia; Z20.822 Contact with and (suspected) exposure to COVID-19; R74.01 Elevation of levels of liver transaminase levels; R79.89 Other specified abnormal findings of blood chemistry; R65.20 Severe sepsis without septic shock; E87.1 Hypo-osmolality and hyponatremia; D75.839 Thrombocytosis, unspecified; F19.10 Other psychoactive substance abuse, uncomplicated; F17.210 Nicotine dependence, cigarettes, uncomplicated; F14.10 Cocaine abuse, uncomplicated; Z68.1 Body mass index [BMI] 19.9 or less, adult
CPT/HCPCS: 32555; 36415; 36600; 71045; 71250; 71275; 74174; 76604; 76705; 80048; 80053; 80202; 80305; 80320; 81003; 82150; 82375; 82570; 82805; 83605; 83615; 83735; 83880; 84145; 84300; 84484; 85025; 85027; 85379; 86850; 86900; 87070; 87075; 87102; 87116; 87426; 88304; 88305; 88312; 88313; 93005; 94640; 94664; 97116; 97162; 97166; 97530; 97535; 99291; C9803; J0456; J0696; J1100; J1160; J1170; J1650; J1885; J2250; J2270; J2405; J2543; J2704; J2710; J2765; J3010; J3370; J3475; J3480; J3490; J7030; J7060; J7120; Q9967; G0480